=== PATIENT | female | born 1975 | race Caucasian/White ===

== ENCOUNTER 2017-07-06 18:16 | Observation (INO) | payer MEDICAID ==
[~2017-07-06] VITALS: Ht 172.7 cm; Wt 85.3 kg
[2017-07-06] MEDS ORDERED: CEFTRIAXONE 1 G PREMIX 50 ML IV ONE (19:30)
[2017-07-06] MEDS ORDERED: CLINDAMYCIN 600 MG in DEXTROSE 5% WATER 50 ML IV ONE (19:30)
[2017-07-06] MEDS ORDERED: KETOROLAC 30MG/ML VIAL IV ONE (20:00)
[2017-07-06 20:18] LABS: BASOPHILS % 0.4 % (0.0-2.0); EOSINOPHILS % 0.5 % (0.0-5.0); HEMATOCRIT. 36.6 % (36.0-48.0); HEMOGLOBIN. 12.2 g/dL (12.0-16.0); LYMPHOCYTES % 12.4 % (20.0-50.0); MEAN CORPUSCULAR HEMOGLOBIN 30.5 pg (28.0-32.0); MEAN CORPUSCULAR VOLUME 91.7 fL (81.0-99.0); MEAN PLATELET VOLUME 9.3 fl (7.4-10.4); MONOCYTES % 6.6 % (2.0-8.0); NEUTROPHILS % 80.1 % (40.0-76.0); PLATELET 296 x1000/uL (130-400); RED BLOOD CELL COUNT 3.99 mill/uL (4.2-5.4); RED CELL DISTRIBUTION WIDTH 13.3 % (11.6-14.6)
[2017-07-06 20:51] LABS: *BARBITURATES SCREEN URINE NEGATIVE (NEGATIVE); *BENZODIAZEPINES SCREEN URINE NEGATIVE (NEGATIVE); *COCAINE SCREEN URINE NEGATIVE (NEGATIVE); CANNABINOID URINE SCREEN NEGATIVE (NEGATIVE); METHADONE URINE SCREEN NEGATIVE (NEGATIVE); OPIATES URINE SCREEN NEGATIVE (NEGATIVE); PHENCYCLIDINE URINE SCREEN NEGATIVE (NEGATIVE)
[2017-07-06 20:52] LABS: *AMPHETAMINES SCREEN URINE PRESUMTIVE POSITIVE (NEGATIVE)
[2017-07-06] MEDS ORDERED: CLINDAMYCIN 600MG PREMIX 50 ML IV ONE (21:30)
[2017-07-06 23:19] LABS: CHLORIDE 104 mEq/L (98-107)
[2017-07-06 23:23] LABS: CARBON DIOXIDE 25 mEq/L (21-32)
[2017-07-07 02:30] VITALS: BP 123/71
[2017-07-07] MEDS ORDERED: ACET-2178 PO (03:35)
[2017-07-07] MEDS ORDERED: TRAMADOL 50MG TABLET PO PRN (03:45)
[2017-07-07 04:00] VITALS: BP 125/86
[2017-07-07] MEDS: SODIUM CHLORIDE 0.45% 1,000 ML IV SCH ×2 (04:40→14:00)
[2017-07-07 06:52] LABS: BASOPHILS % 0.6 % (0.0-2.0); EOSINOPHILS % 2.9 % (0.0-5.0); HEMATOCRIT. 33.9 % (36.0-48.0); HEMOGLOBIN. 11.2 g/dL (12.0-16.0); LYMPHOCYTES % 21.2 % (20.0-50.0); MEAN CORPUSCULAR HEMOGLOBIN 30.2 pg (28.0-32.0); MEAN CORPUSCULAR VOLUME 91.2 fL (81.0-99.0); MEAN PLATELET VOLUME 8.7 fl (7.4-10.4); MONOCYTES % 9.8 % (2.0-8.0); NEUTROPHILS % 65.5 % (40.0-76.0); PLATELET 265 x1000/uL (130-400); RED BLOOD CELL COUNT 3.72 mill/uL (4.2-5.4); RED CELL DISTRIBUTION WIDTH 13.2 % (11.6-14.6)
[2017-07-07 07:53] VITALS: BP 99/54
[2017-07-07 08:57] LABS: CARBON DIOXIDE 25 mEq/L (21-32); CHLORIDE 107 mEq/L (98-107); CREATINE KINASE 48 IU/L (26-192); HDL CHOLESTEROL 41 mg/dL (40-59); LDL CHOLESTEROL 56 mg/dL (5-100); TROPONIN I < 0.02 ng/mL (0.00-0.04)
[2017-07-07] MEDS ORDERED: ACETAMINOPHEN 325MG TABLET PO PRN ×2 (09:00→10:15)
[2017-07-07] MEDS ORDERED: PANTOPRAZOLE SODIUM 40 MG/VIAL IV SCH (09:00)
[2017-07-07] MEDS ORDERED: ASPIRIN 81MG TABLET PO SCH (09:00)
[2017-07-07 12:08] VITALS: BP 125/78
[2017-07-07] MEDS ORDERED: POTASSIUM CHLORIDE 10MEQ TABLET SR PO NR (13:15)
[2017-07-07] MEDS ORDERED: PIPERACILLIN/TAZ 3.375G PREMIX 50 ML IV SCH (14:00)
[2017-07-07 16:00] VITALS: BP 118/76
[2017-07-07 17:37] VITALS: BP 118/76
[2017-07-07] MEDS ORDERED: CEFTRIAXONE 1 G PREMIX 50 ML IV SCH (21:00)
== END 2017-07-07 18:52 | disposition short-term general hospital (02) ==
LOC: ER 21:07 → 8WST 22:20 → INTOOBSV 22:20
PROVIDERS: ADMIT Internal Medicine; ATTEND Internal Medicine
DX: L03.114 Cellulitis of left upper limb (principal); F31.9 Bipolar disorder, unspecified; F17.210 Nicotine dependence, cigarettes, uncomplicated; F12.90 Cannabis use, unspecified, uncomplicated; Z91.81 History of falling
CPT/HCPCS: 36415; 73080; 73564; 80048; 80061; 80305; 82550; 82553; 83605; 84484; 85025; 87070; 87077; 87205; 96361; 96365; 96367; 96375; 99285; C9113; G0378; J0696; J1885; J2543; J3490; J7060